=== PATIENT | male | born 1970 | race Caucasian/White ===

== ENCOUNTER 2023-12-26 07:38 | Outpatient (RCR) | payer MEDICAID, SELFPAY ==
--- NOTE | 2023-12-26 11:30 | HP.OTFCE_ITS ---
Task Lift Floor (Occasional 1-33% of Day): 0 Floor (Frequent 34-66% of Day): n/a Floor (Constant 67-100% of Day): n/a Floor PDL: No Ability Knee (Occasional 1-33% of Day): 30 Knee (Frequent 34-66% of Day): 15 Knee (Constant 67-100% of Day): 6.31 Knee PDL: Light Waist (Occasional 1-33% of Day): 0 Waist (Frequent 34-66% of Day): n/a Waist (Constant 67-100% of Day): n/a Waist PDL: No Ability Shoulder (Occasional 1-33% of Day): 25 Shoulder (Frequent 34-66% of Day): 12.5 Shoulder (Constant 67-100% of Day): 5.26 Shoulder PDL: Light Overhead (Occasional 1-33% of Day): 0 Overhead (Frequent 34-66% of Day): n/a Overhead (Constant 67-100% of Day): n/a Overhead PDL: No Ability Comments: pt is unable to perform floor lift, waist lift, or overhead lift due to instability of R knee and LOB. Pt performs knee as well as shoulder lift at light lifting physical demand level. pt HR does rise with shoulder and attempted over head lifts with pain remaining consistent at 5/10 R knee. Work Activity/Posture Bending: Occasional Ability (1-33% of day) Squatting: No Ablility (0% of day) Kneeling: No Ablility (0% of day) Reaching out: Frequent Ability (34-66% of day) Reaching up: Frequent Ability (34-66% of day) Sitting: Occasional Ability (1-33% of day) Walking: Occasional Ability (1-33% of day) Standing: Occasional Ability (1-33% of day) Reference Reference: Duration Sedentary Sedentary Light Light Light Medium Medium Medium Heavy Very Heavy Heavy Occasional (0-33% of day) Frequent (34-66% of day) Constant (67-100% of day) 10 # Negligible Negligible 15 # 8 # Negligible 20 # 10# Negli. 35 # 18 # 7 # 50 # 25 # 10 # 75 # 100 # >100 # 38 # 50 # >50 # 15 # 20 # >20 # Patient Information Height: 6 ft 7 in Weight:: 174.179 kg Hand Dominance: Right Medical History Medical History Including Restrictions: This 53 year old male presents for FCE this date for determination of disability. Pt reports beginning of issues in July of 2023 with sciatic pain pt seen by doctor and doctors dx pt with radiculopathy narrowing of spine. dx progressed to impacting pts R knee. pt has been seening therapy for back since september 2023 and pt reports back is now feeling better however has gone down to his R knee. pt reports a weakness of R knee along with pain with constant need to move position of knee as well as occ buckling of knee. pt main limiting factors are pain in back as well as weakness of R knee impacting mobility. pt does report falling x6 since the start of the year due to leg giving out on him. Diagnoses Diagnoses: Radiculopathy M54.16 spine narrowing sciatica hx of R elbow sx no other hx provided by pt Symptoms Symptoms: limited movement in hip as well as back knee pain as well as weakness instability R knee mary Pain Pain: knee pain 5/10 rating -- tolerable as long as i go slow pt states he takes alleve at night for pain however that is it Aime pain score 4/78 Work History Work History: pt was working for [employer] however voluntary lay off due to having to use walker at this time - high demand heavy lifting and twist 4 years. 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 ADLS ADLS: Pt lives with brother in apartment with entry stairs approx 27 stairs to get into apartment with unilateral hand rail. single story apartment. pt has a t/s combo however does sponge bath does not get into tub which pt does because he cant lift leg to get into tub. no grab bars standard commode. Pt is I in grooming self feeding tasks pt receives assistance with bathing and dressing task to bath LEs. Pt unable to perform heavy cleaning task. light cooking tasks. Brother helps with donning R sock and shoe. pt does not drive. Pt cousin assists with this. pt is able to shop if supports self with cart and has walker with him. pt has been using standard walker for mobility since september. pt has had x6 falls this year due to R knee giving out one in stair well leading to apartment. pt reports only leaving apartment x2 a week due to having to navigate steps. Physical Examination Physical Examination: arrives this date using standard walker for mobility forward rounded posture in standing. with sitting kicks R knee out into ext ension sits sideways in chair moves position often. in standing pt locks R knee out into hyperextension or leans on walker for support on forearms. HR at baseline 74 bpm ROM: BUEs WFL BLE hip flexion wfl R LE knee extension 155 degrees R knee flexion 90 degrees L knee extension and flexion WFL Strength: Fet Peak Force Strength: R UE shoulder flexion 30 pounds LUE shoulder flexion 27 pounds R bicep flexion 45 pounds L bicep flexion 38 pounds R tricep extension 29 pounds L tricep extension 24 pounds RLE hip flexion 13 pounds LLE hip flexion 13 pounds R knee extension 16 pounds L knee extension 20 pounds R knee flexion 21 pounds L knee flexion 19 pounds Right Loft Patternmaker Strength Average: 76.66 Right Loft Patternmaker Strength Percentile: 4th percentile Left Loft Patternmaker Strength Average: 88.33 Left Loft Patternmaker Strength Percentile: 10.6 percentile Right Lateral Pinch Average: 8.00 Right Lateral Pinch Percentile: < 10th percentile Left Lateral Pinch Average: 10.66 Left Lateral Pinch Percentile: < 10th percentile Right Tripod Pinch Average: 5.00 Right Tripod Pinch Percentile: <10th percentile Left Tripod Pinch Average: 5.00 Left Tripod Pinch Percentile: <10th percentile Comments: Pt presents with decreased strength of B hip flexors decreased strength R knee flex as well as extension pt did have sx on R elbow in 2012 for fx which may be reason for 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 Sensation: denies of BUEs R LE tingling every once in awhile Fine Motor: denies any impairments with FMC Balance: standing forward reach score 8 this indicates pt is at moderate risk for falls Non Material Handling Activities Bendin/3x HR 77 bpm pain 3/10 then 10/10 at own pace 5/10 pain R knee HR 80 bpm, rapidly 1/10x knee mary pt needs to sit support of desk wide stance R knee locked into hyperextension switches arm reaching for item throughout slow pace unsteady Squattin/3x unable able to do slight squat with BUE support on desk HR 74 pain R knee 5/10 Kneelin/3x unable possibility of R knee giving out pt has not kneeeled since beginning of symptoms in july Reaching out/up: reaching out 3/3 then at own pace 10/10 then rapidly 10/10 HR 85 bpm pain in R knee 5/10 reaching up 3/3 then at own pace 10/10 then rapidly 10/10 HR 95 bpm knee pain 5/10 Walking: able to walk from entrance to OT [place] able to walk to therapy room 228 feet-- sits for info gathering able to walk back when leaving for total of [phone] (456 feet) Standing: stand for approx 15-17 min with R knee locked in hyperextension with occ need to lean on walker on forearms. forward rounded posture during stand. Sitting: approx 30- 45 min before needing to stand to adjust position of knee. pt fidgets and re positions R knee often in sitting Climbing Stairs: pt is able to make it up x4 steps before R knee mary and pt catches self using hand rail. pt uses step to pattern ascending steps with R knee extended entire time. pt descends using step to pattern pain in R knee 8/10 Dynamic Occasional Lifting Capacity Floor Lift: unable to lift box unable to lift from floor level due to increased instability Knee Lift: 15 + box (15 pounds) knee lift with no bend at knee bending from waist to complete 80 bpm pain 5/10 R knee Waist Lift: unable due to need for support of walker to take side step pt is able to lift box at waist level however unable to lift and complete translation of box due to need for external support Shoulder Lift: 10 pounds plus box (15 pounds) HR 98 bpm pain 5/10 R knee stand between walker just in case need for support Overhead Lift: unable pt almost approaches top however looses balance and has to set box back down Carrying: unable due to inability to let go of walker to complete a carry movement Comments: pt is able to perform knee level lift as well as shoulder level lift using compensatory movements to complete. pt is unable to complete floor , waist and overhead lifts due to instability as well as decreased mobility of knee.
== END 2023-12-26 14:59 | disposition home or self-care (01) ==
LOC: OT 07:38
PROVIDERS: PCP Nurse Practitioner Family; Referring Provider Anesthesiology Pain Medicine; Visit Provider Anesthesiology Pain Medicine
DX: M54.16 Radiculopathy, lumbar region (principal)
CPT/HCPCS: 97750

== ENCOUNTER → 2024-05-14 | Outpatient (CLI) | payer MEDICAID, SELFPAY ==
--- NOTE | 2024-05-14 08:11 | MRI_ITS ---
STUDY: MRI THORACIC SPINE WITHOUT CONTRAST REASON FOR EXAM: Male, 54 years old. pain TECHNIQUE: Standardized fat and water weighted pulse sequences were obtained in the sagittal and axial planes. COMPARISON: None. FINDINGS: Normal kyphosis of the thoracic spine. Mild levoscoliosis is present. No marrow edema or fracture or compression deformity is present. No aggressive abnormalities are present. T3-T4: Diffuse disc desiccation with mild posterior disc space narrowing and a midline to right paracentral broad-based disc protrusion causing compression of the right anterior aspect of the cord and mild central canal stenosis. Moderate right foraminal stenosis with nerve root compression. Hypertrophy of the right facet joint and ligamenta flava contribute to central canal stenosis and posterior mass effect on the right side of the cord. T5-T6: Moderate left and severe right facet joint hypertrophy and degeneration with moderate left and severe right foraminal stenosis with nerve root compression. T7-T8: Diffuse disc desiccation with mild disc space narrowing and slight annular bulging with a shallow left paracentral disc protrusion causing compression on left anterior aspect of the cord and mild central canal stenosis. Moderate facet joint and ligamenta flava hypertrophy contributing to central canal stenosis. T8-T9: Diffuse disc desiccation with mild disc space narrowing and a shallow right paracentral disc protrusion with compression of right anterior aspect of the cord. Moderate facet joint and ligamenta flava hypertrophy contribute to central canal stenosis and posterior thecal sac compression. Mild bilateral foraminal stenosis. T9-T10: Diffuse disc desiccation with mild disc space narrowing and slight posterior annular bulging with anterior mass effect on the cord. Mild central canal stenosis. Mild facet joint and ligamenta flava hypertrophy. Moderate right and severe left foraminal stenosis with nerve root compression due to facet joint hypertrophy T10-T11: Diffuse disc desiccation with mild posterior disc space narrowing but no posterior disc herniation or bulging. Severe facet and ligamenta flava hypertrophy resulting in compression on the posterior aspect of the spinal cord and severe central canal stenosis. There is also bright signal in the compressed cord consistent with compressive myelomalacia. T1-2, T2-3, T3-4, T4-5, T5-6, T11-12: Disc desiccation and mild endplate spurring/spondylosis and small Schmorl''s node is present throughout the thoracic spine. Normal central canal and intervertebral neural foramina at the corresponding levels. Normal visualized thoracic cord. Normal conus medullaris that terminates at the T12-L1 level. The soft tissue structures are unremarkable. MRI/Spine Thoracic (Routine) IMPRESSION: Multilevel degenerative changes of the thoracic spine detailed above at each level. Electronically Signed: Kayden Mckee MD at 16:01 EDT ,
== END | disposition home or self-care (01) ==
LOC: MRI 07:57
PROVIDERS: PCP Nurse Practitioner Family; Referring Provider Orthopaedic Surgery Orthopaedic Surgery of the Spine; Visit Provider Orthopaedic Surgery Orthopaedic Surgery of the Spine
DX: M47.14 Other spondylosis with myelopathy, thoracic region (principal)
CPT/HCPCS: 72146

== ENCOUNTER 2024-06-12 13:48 | Observation (INO) | payer MEDICAID, SELFPAY ==
[2024-06-07 11:44] LABS: Magnesium 2.3 mg/dL (1.6-2.6)
[2024-06-07 12:33] LABS: HIV - WCH Non-Reactive (Nonreactive); Hepatitis B Surface Antibody Non-Reactive; Hepatitis C Antibody Non-Reactive (Nonreactive)
[2024-06-08 05:07] LABS: Hepatitis A AB, Total Negative (Negative)
[2024-06-12] VITALS (14 sets, daily range): BP systolic 103–143; BP diastolic 62–83; PULSE 60–74; RESP 16–20; TEMP 35.9–36.9; O2SAT 90–100; BMI 20.2; BMI 44.1
[2024-06-12] MEDS: Lactated Ringers 1,000 ML 15 ML IV (09:31)
[2024-06-12] MEDS: Acetaminophen 500 MG Tablet 1000 MG PO (09:32)
[2024-06-12] MEDS: Magnesium 1 GM over 15 mins IV (09:32)
[2024-06-12 10:01] LABS: Bedside Glucose 96 mg/dL (74-106)
--- NOTE | 2024-06-12 10:04 | PCM.PRE.AN2 ---
ASA Classification* ASA Classification ASA Classification: 3 Assessment & Plan Anesthesia* Anesthesia Assessment Anesthesia Assessment: Discussed sedation and/or anesthesia options, risks, benefits, and alternatives with patient/parents/legal guardian/POA. Questions invited. The patient/parents/legal guardian/POA seems to understand and agrees to proceed with anesthesia plan. Reviewed the physical assessment, medical history, allergy history and patient home medications list prior to surgery/procedure/anesthetic and documented any changes. Performed airway and anesthesia risk assessments. Anesthesia Type Anesthesia Type: General History Source History Obtained from:: Patient and Chart Anesthesia Focused Assessment* Temperature: 97.8 F Pulse Rate: 60 Blood Pressure: 143/82 Respiratory Rate: 18 Pulse Ox: 98 Oxygen Delivery Method: Room Air Airway Assessment Mouth opens: >3 cm Mallampati Score: III Teeth Condition: Caps/Crowns (Patient has to His Teeth. They Are Tight) and Missing (Multiple missing teeth.) Neck Range of motion (ROM): Full ROM Focused Labs Anesthesia Preop lab: CBC WBC 3.9 K/mm3 (4.4-11.0) L 10/11/13 10:36 RBC 5.26 M/mm3 (4.6-6.2) 10/11/13 10:36 Hgb 15.2 g/dl (13.0-16.5) 10/11/13 10:36 Hct 44.8 % (40-54) 10/11/13 10:36 Plt Count 198 K/mm3 (150-450) 10/11/13 10:36 CHEMISTRY Potassium 4.5 mmol/L (3.5-5.1) 10/11/13 10:36 Sodium 139 mmol/L (136-145) 10/11/13 10:36 Magnesium 2.3 mg/dL (1.6-2.6) 06/07/24 10:52 BUN 20 mg/dL (7-18) H 10/11/13 10:36 Creatinine 1.0 mg/dL (0.8-1.3) 10/11/13 10:36 Glucose 92 mg/dL (70-110) 10/11/13 10:36 POC Glucose 96 mg/dL (74-106) 06/12/24 09:23 COAG Pre-Assessment Diagnosis/Proposed Procedure Planned Operative Procedure(s): LAMINECTOMY T10-11 Anesthesia History 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 When Was Last Pacemaker Check QUESTION #4 FULL TEXT: You/Your Family Experience fever (hyperthermia) with Anesthesia Last Oral Intake Last Oral intake: Last Oral Intake NPO since 08:00 06/12/24 09:26 Meds taken in AM with sips of Yes 06/12/24 09:26 water? Meds patient instructed to take am of surgery levothyroxine Any additional information?: Yes Meds taken in AM with sips of water?: Yes PONV PONV - sales applications engineer: PONV - sales applications engineer Female No 06/06/24 14:09 HX of Motion Sickness No 06/06/24 14:09 HX of N/V After Surgery No 06/06/24 14:09 Non-Smoker Yes 06/06/24 14:09 Duration of Surgery greater Yes 06/06/24 14:09 than 60 minutes Number of Risk Factors 2 06/06/24 14:09 PONV Score Moderate Risk 06/06/24 14:09 Height & Weight Height & Weight: Anesthesia: Height & Weight Height 6 ft 6 in 06/12/24 09:26 Weight: 79.379 kg 06/12/24 09:26 Body Mass Index (BMI) 20.2 06/12/24 09:26 Respiratory Assessment Respiratory Assessment - sales applications engineer: Respiratory Tract Infection Hx - sales applications engineer Hx Respiratory Tract Infection No 06/06/24 14:09 STOP Sleep Apnea STOP Sleep Apnea - sales applications engineer: STOP Sleep Apnea - sales applications engineer Hx Hypertension Yes: CONTROLLED WITH MEDS 06/06/24 14:09 Hx Sleep Apnea Yes 06/06/24 14:09 CPAP Yes: NONCOMPLIANT/CURRENTLY 06/06/24 14:09 HAS NO MACHINE BIPAP No 06/06/24 14:09 Do you snore loudly (louder than talking or can be heard Do you often feel tired/ fatigued/ sleepy during daytime? Has anyone observed you stop breathing during sleep? STOP Results Positive 06/06/24 14:09 QUESTION #5 FULL TEXT : Do you snore loudly (louder than talking or can be heard through closed doors)? 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 Specify any problems Hx of Preganancy in last 3 N/A 06/06/24 14:09 Months Nurse Filling Out Transfusion DSCHRIBER 06/06/24 14:09 & Questions: Date: 06/06/24 06/06/24 14:09 Time: 14:12 06/06/24 14:09 Patient unable to answer at this time (ie. confused, unrespo /Reproduction History /Reproductive History - sales applications engineer: /Reproductive Hx- sales applications engineer Hx Now No 06/06/24 14:09 Gestational Age (in weeks): EDC: Hx Hx Para Hx Section SAB No 06/06/24 14:09 Active Medications Active Medications: Current Medications Generic Name Dose Route Start Last Admin Trade Name Freq PRN Reason Stop Dose Admin Acetaminophen 1,000 mg 06/12/24 11:30 06/12/24 09:32 Acetaminophen 500 Mg Tablet PO 06/12/24 11:31 1,000 mg X1 ONE Administration Cefazolin Sodium 3 gm/ N/A 30 mls @ 600 mls/hr 06/12/24 11:30 IV 06/12/24 11:32 PREOP ONE Magnesium Sulfate 1 gm/ 102 mls @ 408 mls/hr 06/12/24 11:30 06/12/24 09:32 Dextrose IV 06/12/24 11:44 408 mls/hr X1 ONE Administration Lactated Ringer's 1,000 mls @ 15 mls/hr 06/12/24 09:15 06/12/24 09:31 IV 06/17/24 22:34 15 mls/hr .Q48H AMBROSE Administration Protocol Insulin Human Lispro 1 - 6 unit 06/12/24 11:30 Insulin Lispro 100 Unit/Ml Insuln.Pen SC Q4H PRN PRN BG>/= 180, SEE PROTOCOL Protocol [facility] Medical History Wears glasses History of steroid therapy Thyroid disease Walker as ambulation aid Arthritis Injury of head and neck Gastric reflux CPAP (continuous positive airway pressure) dependence Non-smoker Back pain History of pain when walking Hypertension Home Medications ?Medication ?Instructions ?Recorded ?Last Taken ?Type levothyroxine 100 mcg tablet 100 mcg PO QDAY 01/05/24 06/12/24 History famotidine 20 mg tablet 20 mg PO BID 04/26/24 06/11/24 History hydroxychloroquine 200 mg tablet 200 mg PO QDAY 04/26/24 06/11/24 History lisinopril 30 mg tablet 30 mg PO QDAY 04/26/24 06/11/24 History amlodipine 5 mg tablet 5 mg PO DAILY 06/06/24 06/11/24 History ergocalciferol (vitamin D2) 1,250 1,250 mcg PO ANDERSON 06/06/24 06/11/24 History mcg (50,000 unit) capsule naproxen sodium 220 mg capsule 440 mg PO BID PRN pain 06/06/24 Unknown History (Aleve) Allergy/AdvReac Type Severity Reaction Status Date / Time sulfamethoxazole (From Allergy Rash Verified 06/12/24 09:08 Bactrim) trimethoprim (From Bactrim) Allergy Rash Verified 06/12/24 09:08 Surgical History History of hernia surgery Hx of elbow surgery Hx of appendectomy Hx of tonsillectomy Social History Smoking Status: Never smoker alcohol intake: never Review of Systems (Anesthesia) ROS Narrative System reviewed and no additional complaints, except as documented.
--- NOTE | 2024-06-12 10:56 | PCM.HP.BLA ---
History and Physical Date of Admission: 06/12/24 MR#: [id number] Acct: [id number] Name: EDITA CORREA Rep #: [id number] : 1970 Provider: Dr. Ishmael Schilling MD Age/Sex: 54/M [place] [facility] [place] Status: Signed Intake Vital Signs 01/04/2409:02 Height 6 ft 7 in Intake Visit Reasons: THORACIC SPINE Accompanied by: Self Is patient in pain?: Yes Allergies sulfamethoxazole (From Bactrim) Allergy (Verified 05/28/24 07:34) Rashtrimethoprim (From Bactrim) Allergy (Verified 05/28/24 07:34) Rash Medications ?Medication ?Instructions ?Recorded ?Confirmed ?Type levothyroxine 100 mcg tablet 100 mcg PO QDAY 01/05/24 05/28/24 History famotidine 20 mg tablet 20 mg PO BID 04/26/24 05/28/24 History hydroxychloroquine 200 mg tablet 200 mg PO QDAY 04/26/24 05/28/24 History lisinopril 30 mg tablet 30 mg PO QDAY 04/26/24 05/28/24 History PFSH Surgical History History of hernia surgery Hx of elbow surgery Hx of appendectomy Hx of tonsillectomy Social History Smoking Status: Never smoker alcohol intake: never HPI THORACIC SPINE Details: This documentation accurately reflects the service provided and the decisions made by me, Dr. Ishmael Schilling MD 05/28/24 0730. Part of today?s visit was documented by [ ], acting as scribe. EDITA CORREA is a 54 year old M here today for a followup after his thoracic MRI. Patient notes that he continues to have pain and stiffness and soreness. He is using a walker to ambulate. He has used a walker to ambulate since August. Patient denies any changes in his symptoms. He is taking Aleve for pain. His MRI is here for review. No new falls. Says that his falls are most likely related to leg weakness. HPI from 04/05/24: EDITA CORREA is a 53 year old M here today for low back pain. Pt. presents ambulating slowly with use of walker. He has had one right knee steroid injection from Dr. Nicole on 01-24-24 and has completed PT which he states was somewhat helpful. He has also been seen by Dr. Londono and is waiting for approval for steroid injection for his back pain. He rates his low back pain 12/28. He states the pain in his low back extends into his right hip. He denies new injury, numbness or tingling. He uses a walker for balance and if he doesn't use a walker, says that he falls. HPI from 01/05/24: EDITA CORREA is a 53 year old M here today NEW patient for low back pain that started in August of this year. Patient does ambulate with a walker. He has had xrays and MRI at [facility] but he didn't bring the images with him today. He has pain that radiates down the right leg but mostly in the knee. He has occasional numbness and tingling in the right leg if he stands or sits for too long. He states that Dr. Amaya was going to do surgery on him but due to his insurance changing he was no longer able to do it. He did PT and started the fist Monday and ended on the of this month, he was going 2 days a week. He states it did help some with the back but made his knee worse. He has seen Dr. Londono on 10/07/23 for an injection which did give him some relief. He was also given gabapentin which did help some but never got a refill. He now takes Aleve for pain at night but it doesn't seem to give him much relief. Edita started having low back pain radiating down the right lower extremity around July or August. He does not remember any specific episode or injury. 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 He has not been able to go back to work since September. He was seen by Dr. Amaya who did obtain an MRI but this not available for us to see. He has tried physical therapy as well as an epidural injection in September. He is scheduled to return for follow-up to Dr. Londono. Today, he says that he does not have significant axial back pain. Most of his pain is in the right knee. Over the last few months he has noticed the need for a walker as he is not able to put weight on the right leg. He denies any swelling in the knee but mentions that he is not able to bend the knee back. He states that the knee and 30 degree flexion and prefers not to bend it further. He has undergone occupational therapy assessment for possible disability application. He has undergone hip and knee x-rays and also institution which also did not bring it with him. Ortho Exam General General: Yes no acute distress Neurologic: Yes alert and Yes oriented x3 Spine DTR's: Rt Patellar: 3+ and Lt Patellar: 3+ SPINE TESTING CERVICAL THORACIC LUMBAR Musculoskeletal Strength 0=absent - 5=normal Details: Exam of the lower back shows no tenderness. Neurologic range of motion shows 5x5 power. Normal sensations across all dermatomes. Patient has severe antalgic gait. He was able to make it up on the exam table with pain. Romberg's and gait and balance could not be tested because severe reliance on the walker. Knee and ankle reflexes are exaggerated. Coding Level of Care Code Off vis,est,level 4 Diagnoses Thoracic myelopathy M47.14 Spinal stenosis of lumbar region with neurogenic claudication M48.062 Time Spent (min) 35 Assessment and Plan Assessment and Plan (1) Thoracic myelopathy: Status: Acute (2) Spinal stenosis of lumbar region with neurogenic claudication: Status: Acute Orders: Orders Thoracic Spine 2 Views Today M54.9 - Dorsalgia, unspecified Plan Obtained and reviewed imaging today with the patient and reviewed MRI from 05/14/24. MRI shows T10-T11 severe facet and ligamenta flava hypertrophy resulting in compression on the posterior aspect of the spinal cord and severe central canal stenosis with myelomalacia. T9-T10 shows moderate right and severe left foraminal stenosis with nerve root compression. T8-9 also shows mild central stenosis with cord indentation. Discussed imaging findings in detail. Explained to him that he has developed severe cord compression especially at T10-11 with myelomalacia indicative of a reversible spinal cord damage. Natural history of thoracic myelopathy was discussed. Patient has had progressive loss of balance and worsening of function in the lower extremities. Patient is a candidate for T10-T11 laminectomy. Possible need for fusion was discussed. Explained to him that the T8-9 level also shows mild cord indentation but may not be severe enough to consider surgical decompression. I recommend restricting the surgery to T10-11 laminectomy. Discussed the surgery in detail with the patient and reviewed risk and benefits. Patient understands and wishes to proceed with surgery. He will follow up with his PCP for surgical clearance. Encouraged him to continue to use the walker prior to surgery to prevent falls. He will follow up for a preop appointment after our office schedules him. Patient is in agreement.
[2024-06-12] MEDS: Cefazolin 3 GM in Syringe 1 EACH IV (11:11)
[2024-06-12] MEDS: TXA 1000mg in NS100 100ml (IVPB at Incision) 660 MG IV (11:23)
--- NOTE | 2024-06-12 11:41 | RAD_ITS ---
EXAM: FL FLUOROSCOPY < 1 HOUR CLINICAL INDICATION: LAMINECTOMY T10-11 TECHNIQUE: Fluoroscopic images performed in multiple projections. Fluoroscopic guidance was provided by a physician. 9.3 seconds fluoroscopic time. 10.01 mGy total dose. COMPARISON: Thoracic spine radiographs, 05/28/2024 FINDINGS AND RAD/Thoracic Spine 2 Views IMPRESSION: Intraoperative fluoroscopic examination. For complete details, refer to the operative note. Electronically Signed: Damián Brito DO at 23:57 EDT ,
[2024-06-12] MEDS: TXA 1000mg in NS100 100ml (IVPB at Closure) 660 MG IV (13:06)
[2024-06-12] MEDS: Ropivacaine 0.5% 30 ML Vial (13:13)
--- NOTE | 2024-06-12 13:55 | PCM.POST.ANE ---
Anesthesia: Postop Eval I Current Vital Signs Temperature: 97.1 F Pulse Rate: 74 Blood Pressure: 117/70 Respiratory Rate: 16 Pulse Ox: 93 Oxygen Delivery Method: Room Air Assessment Airway patent: Yes Spontaneous unlabored respirations: Yes Mental status: Awake (EASILY AROUSABLE) and Calm nausea: No Vomiting: No Anesthesia Complication: No Fluid Hydration Crystalloid volume administer (ml): 1,400 Total IV fluid infused: 1,400 Progress Note Anesthesia document: Postop Eval 1 completed: Yes
--- NOTE | 2024-06-12 13:56 | PCM.OPRPT ---
Operative Report (Standard) Operative Information Surgery/Procedure Performed: Thoracic laminectomy T10-11 Surgeon: Ishmael Schilling Date of Procedure: 06/12/24 Procedure Start Time: 11:50 Procedure Stop Time: 13:40 Pre-Operative Diagnosis: T10-11 stenosis, cord compression, myelopathy Post-Operative Diagnosis: Same Select all DRAINS/GRAFTS/IMPLANTS that apply: None Type of Anesthesia: General Estimated Blood Loss: 100 cc Specimen collected: No Description of surgery: Preoperative diagnosis: T10-11 stenosis, cord compression, cord signal changes, myelopathy Postoperative diagnosis: Same Name of procedure: T10-11 open laminectomy CPT 32847 Attending Surgeon: Dr. Ishmael Schilling Estimated blood loss: 100 mL Anesthesia: General Indications: Patient is a 54-year-old Gentleman who presented with Worsening difficulty with balance and weakness in right first and lower left lower extremities. MRI revealed T10-11 stenosis with cord compression with cord signal changes or myelomalacia. All options of treatment were discussed which included continued nonoperative treatment measures. Due to the weakness and progressive symptoms, in order to halt the progression of myelopathy, patient requested surgical intervention for laminectomy. All risks and benefits associated with the procedure were explained to the patient. The risks include but are not limited to infection, bleeding, hematoma formation, injury to nerves and vessels, spinal cord injury persistent paresthesia, incidental dural tear, spinal instability and need for fusion or other procedures in future, persistent pain, persistent weakness and numbness, paraplegia, DVT, pulm embolism, cardiopulmonary event etc. Procedure: The patient was identified in the preoperative holding suite using Unique patient identifiers. Skin was marked, consent was reviewed, and all questions were answered. The patient was then brought back to the operative room. A surgical timeout was performed to make sure correct procedure was being done on the correct patient and all operative room staff were on the same page. General endotracheal anesthesia was then given to the patient. The patient was then turned prone onto a Hoang table. The back was prepped and draped in usual fashion. Preoperative antibiotic was given. A final timeout was then again done just before starting the procedure. C-arm AP view was utilized to martha out the incision on the skin with a skin marker. An incision was then carried out approximately 2 inch length in the midline. Bovie was utilized to dissect through the subcutaneous tissue up to the fascia. The fascia was bovied at the spinous process. Subperiosteal dissection was carried out along the both side of the spinous process and the lamina. This dissection was stopped at the transverse process. Lateral edge of the pars was also identified. A Aleksandr clamp was placed on the right transverse process of presumed T11 vertebra and another Aleksandr was placed on the spinous process of T10. This was confirmed on AP and lateral views utilizing the lowermost ribs as T12. A Núñez retractor of appropriate depth was then placed to provide retraction throughout the remainder of the surgery. A bone cutter was used to remove the T10 spinous process. Rongeur was used to remove the remainder of the spinous process. Bone wax utilized to control bony bleeding. [employer] bone scalpel was then utilized to first create a score along the area of the laminectomy. Care was taken to preserve at least 1 cm of bone from the lateral border of the pars. The bone scalpel was then advanced to perform the cuts along this score. The lamina was then removed carefully. The flavum was utilized to protect the dura and superior articular process was carefully from the flavum. Partial medial facetectomy was performed to provide adequate decompression of the central portion of the canal. Superior portion of T11 lamina was also removed with help of Kerrisons. All of the flavum was eventually removed. A large portion of the lateral portion of the flavum was ossified. Kerrison rongeurs were utilized to perform adequate decompression of the spinal cord. Once decompression was adequately assessed with Smith, irrigation was done with normal saline. Irrisept was kept in the wound for 1 minute and then rinsed with saline. A small piece of Gelfoam was then placed over the bony window. The Núñez retractor was then removed. And closure was done in layers. The deep fascial layer was closed in a watertight fashion with interrupted 1 Vicryl augmented with #2 strata fix. Subcutaneous tissue was closed with 0 Vicryl for deep subcutaneous fat and 2-0 Vicryl for subcutaneous layer. Milton were used on the skin. gauze was then placed over the wound covered with Tegaderm. The patient was then turned supine onto a hospital bed. The patient was extubated and taken to PACU in stable condition. The patient tolerated the procedure well and no complications occurred. Estimated blood loss for the entire surgery was 100 mL. No instrumentation was utilized in this case. No dural tear occurred in this case. I was present for the entirety of the case and performed the surgery myself. Surgical Findings: See op note. Ossified ligamentum flavum noticed. 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
--- NOTE | 2024-06-12 16:56 | POSTOPAN2_ITS ---
Anesthesia Postop Eval I Sum Postop Eval Completion status Anesthesia document: Postop Eval 1 completed: Yes Anesthesia Postop Eval I Summary Anesthesia Postop Eval I Summary: Anesthesia Postop Eval I: Assessment Summary Airway patent Yes 06/12/24 13:56 LEASE ADMINISTRATION [email or web address] Spontaneous unlabored Yes 06/12/24 13:56 LEASE ADMINISTRATION ANALYST.SCHR respirations Mental status Awake - EASILY 06/12/24 13:56 LEASE ADMINISTRATION ANALYST.SCHR AROUSABLE,Calm nausea No 06/12/24 13:56 LEASE ADMINISTRATION ANALYST.SCHR Vomiting No 06/12/24 13:56 LEASE ADMINISTRATION ANALYST.SCHR Anesthesia Postop Eval I: Fluid Summary Crystalloid volume administer 1,400 06/12/24 13:56 LEASE ADMINISTRATION ANALYST.SCHR (ml) Colloids volume administered ( ml) Blood Product volume administered (ml) Total IV fluid infused 1,400 06/12/24 13:56 LEASE ADMINISTRATION ANALYST.SCHR Anesthesia Postop Eval I: Summary Notes Anesthesia Complication No 06/12/24 13:56 LEASE ADMINISTRATION ANALYST.SCHR Anesthesia Complication Comment: Post-operative progress note Anesthesia: Postop Eval II Evaluation Mental status: Awake and Calm Pain Level: 1 nausea: No Vomiting: No Complications Anesthesia Complication: No
--- NOTE | 2024-06-12 16:56 | PCM.POSTANE2 ---
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 DYEING MACHINE LOADER.SCHR Spontaneous unlabored Yes 06/12/24 13:56 TOP DYEING MACHINE LOADER.SCHR respirations Mental status Awake - EASILY 06/12/24 13:56 TOP DYEING MACHINE LOADER.SCHR AROUSABLE,Calm nausea No 06/12/24 13:56 TOP DYEING MACHINE LOADER.SCHR Vomiting No 06/12/24 13:56 TOP DYEING MACHINE LOADER.SCHR Anesthesia Postop Eval I: Fluid Summary Crystalloid volume administer 1,400 06/12/24 13:56 TOP DYEING MACHINE LOADER.SCHR (ml) Colloids volume administered ( ml) Blood Product volume administered (ml) Total IV fluid infused 1,400 06/12/24 13:56 TOP DYEING MACHINE LOADER.SCHR Anesthesia Postop Eval I: Summary Notes Anesthesia Complication No 06/12/24 13:56 TOP DYEING MACHINE LOADER.SCHR Anesthesia Complication Comment: Post-operative progress note Anesthesia: Postop Eval II Evaluation Mental status: Awake and Calm Pain Level: 1 nausea: No Vomiting: No Complications Anesthesia Complication: No
[2024-06-12] MEDS: Methocarbamol 500 MG Tablet 1000 MG PO ×2 (17:24→20:23)
[2024-06-12] MEDS: Ketorolac 15 MG/ML Vial IV (17:24)
[2024-06-12] MEDS: Ensure Surgery 237 ML LIQUID PO (17:25)
--- NOTE | 2024-06-12 18:03 | PCM.PN.HOSP ---
Reason for Visit Reason for Visit: Diagnoses Encounter for other preprocedural examination (06/12/24) Subjective Subjective 54 y/o male hx morbid obesity, hypothyroidism, HTN, GERD, hip pain presented to [facility] 06/12 for a Thoracic laminectomy T10-11 w/ Dr. Schilling. Hospitalist consulted for post op medical management. Patient evaluated bedside. Has been up to the bathroom and reports overall he is doing well, ROS reviewed and negative, no new or acute complaints Objective Data Objective Data Vital Signs: Vital Signs Temp Pulse Resp BP Pulse Ox O2 Del Method O2 Flow Rate 98.4 F 66 18 126/83 H 100 Nasal Cannula 2 06/12/24 16:16 06/12/24 16:16 06/12/24 16:16 06/12/24 16:16 06/12/24 16:16 06/12/24 16:16 06/12/24 16:16 Oxygen Flow Rate (L/min) 2 Oxygen Delivery Method Nasal Cannula Weight: 173.255 kg Body Mass Index (BMI) 44.1 Intake & Output: Intake and Output for Last 24 Hours 06/10/24 06/11/24 06/12/24 23:59 23:59 23:59 Intake Total 1352 / 1352 Balance 1352 / 1352 Lab / Micro Data Labs: Laboratory Results - last 24 hr 06/12/24 09:23: POC Glucose 96 Micro: Microbiology 06/07/24 10:52 Swab (Method) Nasal Screen MRSA/MSSA - Final Physical Exam Narrative General: Alert, oriented, no apparent distress HEENT: Atraumatic, normocephalic Eyes: Anicteric, normal conjunctiva, extraocular movements grossly intact Neck: Supple Respiratory: Clear to auscultation bilaterally, normal respiratory effort Cardiovascular: Regular rate and rhythm GI: Soft, nontender, nondistended Extremities: No edema Musculoskeletal: Moving all extremities Neuro: No overt focal neurological deficits Skin: No rashes appreciated, incision not evaluated Psych: Cooperative Assessment & Plan Assessment/Plan (1) Back pain: PLAN: Plan #HTN -Pt on amlodipine and lisinopril, these are set to resume tomorrow #Hypothyroidism -Continue Synthroid #Morbid obesity -BMI documented as 44.1 kg/m? at time of admission -Complicates treatment, prognosis, outcomes -Recommend weight loss and lifestyle changes #Hx lupus -Continue hydroxychloroquine #GERD - continue famotidine #Thoracic T10-11 laminectomy -Post op 06/12 w/ Dr. Schilling -Management per primary #DVT ppx: at discretion of primary service Tamar Rousseau MD Time spent in the patient's overall evaluation,decision-making process, review of diagnostic data, adjustment of management, discussion with other providers, nursing nursing and ancillary staff involved in patient's care documentation, 25 Minutes Charges/Coding Visit Charges Office Visits / Consults: 17671 OV L3 Est 20min
[2024-06-12] MEDS: Cefazolin 2 GM in Syringe IV (19:32)
[2024-06-12] MEDS: Senna/Docusate Sodium 1 Tablet 2 TABLET PO (20:23)
[2024-06-12] MEDS: Famotidine 20 MG Tablet PO (20:24)
[2024-06-13 00:16] VITALS: BP 149/79; PULSE 67; RESP 18; TEMP 36.8; O2SAT 96
[2024-06-13] MEDS: Ketorolac 15 MG/ML Vial IV ×2 (00:26→05:28)
[2024-06-13] MEDS: Cefazolin 2 GM in Syringe IV (03:29)
[2024-06-13] MEDS: 0.9% Saline Lock 10 ML Syringe IV ×2 (03:29→20:26)
[2024-06-13 03:30] VITALS: BP 137/79; PULSE 66; RESP 16; TEMP 36.7; O2SAT 97
[2024-06-13] MEDS: Levothyroxine 100 MCG Tablet PO (05:28)
[2024-06-13 07:04] LABS: Hematocrit 38.9 % (40-54); Hemoglobin 12.9 g/dL (13.0-16.5); Mean Corp Hgb Conc 33.2 g/dL (32-36); Mean Corpuscular Hgb 29.4 pg (27.0-32.0); Mean Corpuscular Volume 88.6 fL (80-94); Mean Platelet Vol. 9.6 fl (6.2-12.0); Platelet Count 222 K/mm3 (150-450); RBC Distribution Width CV 11.9 % (11.6-14.6); RBC Distribution Width SD 38.4 fl (35.1-43.9); Red Blood Count 4.39 M/mm3 (4.6-6.2); White Blood Count 11.3 K/mm3 (4.4-11.0)
[2024-06-13 08:22] LABS: Anion Gap 5 (5-15); BUN 28 mg/dL (7-18); BUN/Creat Ratio 23.7 RATIO (10-20); Calcium,Total 8.8 mg/dL (8.5-10.1); Chloride 109 mmol/L (98-107); Creatinine, Serum 1.18 mg/dL (0.70-1.30); EST Glomerular Filtration Rate 69 mL/min (>60); Est Glom Filt Rate - Afr Amer 83 mL/min (>60); Estimated Creatinine Clearance 128.58 ml/min; Glucose 122 mg/dL (74-106); Potassium 4.1 mmol/L (3.5-5.1); Sodium Level 139 mmol/L (136-145)
[2024-06-13 08:45] VITALS: BP 122/77; PULSE 62; RESP 18; TEMP 36.1; O2SAT 100
[2024-06-13] MEDS: Methocarbamol 500 MG Tablet 1000 MG PO ×4 (08:46→20:25)
[2024-06-13] MEDS: Famotidine 20 MG Tablet PO ×2 (08:46→20:25)
[2024-06-13] MEDS: Meloxicam 15 MG Tablet PO (08:46)
[2024-06-13] MEDS: Hydroxychloroquine 200 MG Tablet PO (08:47)
[2024-06-13] MEDS: Lisinopril 10 MG Tablet 30 MG PO (08:47)
[2024-06-13] MEDS: Senna/Docusate Sodium 1 Tablet 2 TABLET PO ×2 (08:47→20:25)
[2024-06-13] MEDS: amLODIPine 5 MG Tablet PO (08:47)
[2024-06-13] MEDS: Ensure Surgery 237 ML LIQUID PO (08:50)
--- NOTE | 2024-06-13 09:28 | CASEMGMT ---
JASWANT LION Assessment: Face to Face with pt for initial transition planning/care coordination assessment. JASWANT LION introduced self and role at [facility], pt voices understanding and consents to assessment. Pt is A&O x4 and answers all questions appropriately at this time. Pt sitting up in chair in no distress. Care providers, pharmacy, and demographics verified/updated. Admitting Dx: laminectomy T10-11 Strata Score: 1 PCP:Vane Artis NP Specialists:Yanet Schilling, mk Amado Pharmacy: [facility] Insurance: Swivl Prescription Benefit: yes LNOK: Kavitha Lawson, cousin Living Arrangements: Pt lives with brother and nephews in a second story apt with 22 steps to enter with a rail. Pt reports prior to surgery he was I in ADLs. Pt brother does laundry. Pt reports his brother and nephews are gone all day so it is like he lives alone. Transportation: Pt does not drive, pt cousin transports him to medical appts. DME:walker HHC/SNF: Denies hx of Pt states he has worked with therapy this morning but it is currently not documented. Pt states he would like to go to a SNF so he does not have to maneuver the steps at his home. Pt states he has applied for an apt in [place] for disable people so he does not have to do steps. He is awaiting acceptance for this. Pt aware that once therapy notes are in, JASWANT LION or CHIP will speak with him. Pt states no further concerns/needs. CM to follow. Advised pt to ask CM if any further question/concerns/needs arise, voices understanding. Pt Goal: SNF Plan: TBD pending therapy evals Handoff given to MS3 JASWANT LION and CHIP. Roseann MICHAUD CM
--- NOTE | 2024-06-13 11:20 | CASEMGMT ---
Addendum entered by Trduy Barr 06/13/24 12:00: [facility] d/t not being in network. SW updated. Trudy Barr DC Planning Asst. Original Note: Discharge Planning Referral sent via [facility] to [facility]. Trudy Barr DC Planning Asst.
--- NOTE | 2024-06-13 11:39 | CASEMGMT ---
Addendum entered by Selina Contreras 06/13/24 12:49: [facility] was unable to accept pt referral. Pt advised. A list of SNF providers including quality and resource use data and consistent with the patient?s preferred geographic region, medical needs, and insurance network were provided from the [facility] Guide. Pt chose [facility], [facility], and [facility]. MIGUEL ANGEL notified. KRISH Milton Addendum entered by Selina Contreras 06/13/24 11:51: Pt declines SNF list at this time d/t knowing FOC. A list will be provided if needed for additional options. KRISH Milton Original Note: Social Work- SW met with pt to complete SDOH. Pt reports that he has concerns about the 22 stairs leading into his apartment. Pt has a first floor/accessible apartment available to him mid- June, but needs placement until that is available. Pt would like a referral to [facility]. PT reports that pt walked 60' and has concerns that he has had difficulties navigating stairs prior to surgery; getting arm stuck, falling. Pt surgeon reports that he is aware pt is requesting SNF. DCA advised of pt FOC and referral request. SW remains available to follow. KRISH Milton
--- NOTE | 2024-06-13 12:10 | CASEMGMT ---
Discharge Planning A list of?SNF providers including quality and resource use data and consistent with the patient's preferred geographic region, medical needs, and insurance network was created in [facility] Guide.? This list was provided to the SW. Trudy Barr Discharge Planning Asst.
--- NOTE | 2024-06-13 12:13 | PCM.PN.ORT ---
Subjective Subjective Seen with Dr. Schilling. He is now POD #1 laminectomy T10-11. His pain has been well managed. He has walked with physical therapy with a walker. Says that he has not done steps with him and he lives in an apartment that requires him to walk up 22 steps. Patient is unsure if he is able to return home because of these steps. Objective Data Objective Data Vital Signs: Vital Signs Temp Pulse Resp BP Pulse Ox O2 Del Method O2 Flow Rate 97 F L 62 18 122/77 H 100 Room Air 2 06/13/24 08:45 06/13/24 08:45 06/13/24 08:45 06/13/24 08:45 06/13/24 08:45 06/13/24 08:45 06/12/24 16:16 Oxygen Flow Rate (L/min) 2 Oxygen Delivery Method Room Air Weight: 381 lb 15.379 oz Body Mass Index (BMI) 44.1 Intake & Output: Intake and Output for Last 24 Hours 06/11/24 06/12/24 06/13/24 23:59 23:59 23:59 Intake Total 1821 1088.25 / 1088.25 Balance 1821 1088.25 / 1088.25 Lab / Micro Data 06/13/24 06:38 06/13/24 06:38 Labs: Laboratory Results - last 24 hr 06/13/24 06:38: WBC 11.3 H, RBC 4.39 L, Hgb 12.9 L, Hct 38.9 L, MCV 88.6, MCH 29.4, MCHC 33.2, RDW Std Deviation 38.4, RDW Coeff of Barrett 11.9, Plt Count 222, MPV 9.6, Sodium 139, Potassium 4.1, Chloride 109 H, Carbon Dioxide 25.0, Anion Gap 5, BUN 28 H, Creatinine 1.18, Estim Creat Clear Calc 128.58, Est GFR (MDRD) Af Amer 83, Est GFR (MDRD) Non-Af 69, BUN/Creatinine Ratio 23.7 H, Glucose 122 H, Calcium 8.8 Micro: Microbiology 06/07/24 10:52 Swab (Method) Nasal Screen MRSA/MSSA - Final Radiography Diagnostic Testing: Radiology Impression Thoracic Spine X-Ray 06/12/24 11:41 IMPRESSION: Intraoperative fluoroscopic examination. For complete details, refer to the operative note. Electronically Signed: Damián Brito, at 23:57 EDT , Physical Exam Narrative Tegaderm and gauze are intact. No drainage noticed. Neurological exam of the lower extremities shows 5x5 power. Normal sensations across all dermatomes. Const alert, oriented x3 and no apparent distress Assessment & Plan Assessment/Plan (1) Status post laminectomy: PLAN: Plan POD #1 PT/OT to attempt stairs with the patient. Discussed discharge location of home vs SNF and patient understands that based on the surgery and function, a SNF may not be possible. In the past he has had multiple falls on these stairs and feels that his knee gives out on him. Pain has been well managed. Waiting to hear back from international marketing manager on where to discharge. He will follow back up in 2 weeks in the clinic.
--- NOTE | 2024-06-13 12:47 | CASEMGMT ---
Addendum entered by Trudy Barr 06/14/24 12:30: [facility] and will submit for precert. SW updated. Trudy Barr DC Planning Asst. Addendum entered by Trudy Barr 06/14/24 08:07: Msg sent to check on status of referral. Trudy Barr DC Planning Asst. Original Note: Discharge Planning Referral sent to [facility] via [facility]. Trudy Barr DC Planning Asst.
[2024-06-13 15:15] VITALS: BP 140/88; PULSE 57; RESP 18; TEMP 36.6; O2SAT 100
[2024-06-13 20:15] VITALS: BP 145/64; PULSE 62; RESP 18; TEMP 36.5; O2SAT 99
[2024-06-14 04:01] VITALS: BP 129/80; PULSE 60; RESP 16; TEMP 36.8; O2SAT 100
[2024-06-14] MEDS: Levothyroxine 100 MCG Tablet PO (05:08)
[2024-06-14 07:23] VITALS: BP 134/77; PULSE 56; RESP 16; TEMP 36.4; O2SAT 99
[2024-06-14] MEDS: Hydroxychloroquine 200 MG Tablet PO (07:35)
[2024-06-14] MEDS: Ensure Surgery 237 ML LIQUID PO ×2 (07:35→17:54)
[2024-06-14] MEDS: Senna/Docusate Sodium 1 Tablet 2 TABLET PO ×2 (10:12→21:22)
[2024-06-14] MEDS: Methocarbamol 500 MG Tablet 1000 MG PO ×4 (10:12→21:22)
[2024-06-14] MEDS: Famotidine 20 MG Tablet PO ×2 (10:12→21:23)
[2024-06-14] MEDS: Meloxicam 15 MG Tablet PO (10:13)
[2024-06-14] MEDS: amLODIPine 5 MG Tablet PO (10:13)
[2024-06-14] MEDS: Lisinopril 10 MG Tablet 30 MG PO (10:13)
--- NOTE | 2024-06-14 12:41 | TREXTCAR_ITS ---
Diet Diet Order/Speech Therapy: 06/12/24 13:49 Diet: Regular - General Type of Dietary Supplement:: Ensure Surgery Wound(s) MID BACK: Wound Type: Surgical Incision (Keep tegaderm and gauze clean and dry. After 5 days remove tegaderm and gauze and cover with a bandaid. Change bandaid daily there after. No bending, lifting, or twisting. ) Therapies Weight Bearing: Full weight bearing Physical Therapy: Eval and Treat Occupational Therapy: Eval and Treat Problem/Diagnosis (1) Status post laminectomy: Status: Acute Code(s): Z98.890 - Other specified postprocedural states Plan POD #1 PT/OT to attempt stairs with the patient. Discussed discharge location of home vs SNF and patient understands that based on the surgery and function, a SNF may not be possible. In the past he has had multiple falls on these stairs and feels that his knee gives out on him. Pain has been well managed. Waiting to hear back from case management associate on where to discharge. He will follow back up in 2 weeks in the clinic. Allergies/Procedures Done in Hospital Allergies sulfamethoxazole (From Bactrim) Allergy (Verified 06/12/24 09:08) Rash trimethoprim (From Bactrim) Allergy (Verified 06/12/24 09:08) Rash Type of Care/Length of Stay Estimated LOS: Convalescent Care Less Than 30 days Type of Care Needed: Skilled Rehab Potential: Good Prognosis: Good Additional Orders/Day of Discharge Day of Discharge: 06/14/24 Follow Up Care Please Follow Up With: Ishmael Schilling MD When: Follow up in clinic in 2 weeks Discharge Plan Admission Admit Date/Time: 06/12/24 13:48 Primary Reason for Your Visit: s/p laminectomy Attending Provider: Ishmael Schilling Primary Care Provider: Vane Artis NP Consulting Providers: Tamar Rousseau; Sandra Ramírez Instructions Patient Instructions: Laminectomy Dc Additional Instructions / Restrictions: Keep Tegaderm and gauze clean and dry. If Tegaderm is intact, okay to shower. After 5 days remove Tegaderm and gauze and cover with a Band-Aid. Replace Band- Aid daily thereafter. No bending lifting or twisting. Follow-up in clinic in 2 weeks. Discharge Orders/Prescriptions Prescriptions: New meloxicam 15 mg Tablet 15 mg PO DAILY Qty: 30 0RF methocarbamol 500 mg Tablet 750 mg PO TID PRN (Reason: pain/spasms ) Qty: 30 0RF sennosides-docusate sodium [Stimulant Laxative Plus] 8.6-50 mg Tablet 2 tab PO BID PRN (Reason: constipation) Qty: 30 0RF hydrocodone-acetaminophen 5-325 mg Tablet 1 tab PO Q6H 5 Days Qty: 20 0RF Continued levothyroxine 100 mcg tablet 100 mcg PO QDAY hydroxychloroquine 200 mg tablet 200 mg PO QDAY famotidine 20 mg tablet 20 mg PO BID lisinopril 30 mg tablet 30 mg PO QDAY amlodipine 5 mg tablet 5 mg PO DAILY ergocalciferol (vitamin D2) 1,250 mcg (50,000 unit) capsule 1,250 mcg PO ANDERSON Discontinued naproxen sodium [Aleve] 220 mg capsule 440 mg PO BID PRN (Reason: pain) Referrals / Follow Up: Vane Artis NP, MOLDER FOAM RUBBER-C [Primary Care Provider] - Disposition Disposition (needs filled in before D/C Order can be placed[facility]
--- NOTE | 2024-06-14 13:06 | PCM.PN.ORT ---
Subjective Subjective Postop day 2 laminectomy. Patient is doing well and has walked with therapy. Attempted steps however was only able to do 4 steps in a row. He has 22 steps to get into his apartment. Approved to [facility] for additional rehab. Objective Data Objective Data Vital Signs: Vital Signs Temp Pulse Resp BP Pulse Ox O2 Del Method O2 Flow Rate 97.6 F L 56 L 16 134/77 H 99 Room Air 2 06/14/24 07:23 06/14/24 07:23 06/14/24 07:23 06/14/24 07:23 06/14/24 07:23 06/14/24 07:23 06/12/24 16:16 Oxygen Flow Rate (L/min) 2 Oxygen Delivery Method Room Air Weight: 381 lb 15.379 oz Body Mass Index (BMI) 44.1 Intake & Output: Intake and Output for Last 24 Hours 06/12/24 06/13/24 06/14/24 23:59 23:59 23:59 Intake Total 1821 1488.25 / 1688.25 200 / 200 Balance 1821 1488.25 / 1688.25 200 / 200 Lab / Micro Data 06/13/24 06:38 06/13/24 06:38 Micro: Microbiology 06/07/24 10:52 Swab (Method) Nasal Screen MRSA/MSSA - Final Physical Exam Narrative Tegaderm and gauze are intact. No drainage noticed. Neurological exam of the lower extremities shows 5x5 power. Normal sensations across all dermatomes. Const alert, oriented x3 and no apparent distress Assessment & Plan Assessment/Plan (1) Status post laminectomy: PLAN: Plan Discharge to [facility] sent. Home meds include hydrocodone-acetaminophen, meloxicam, methocarbamol, senna. Pain has been well managed. No bending, lifting, or twisting. Follow up in clinic in 2 weeks.
--- NOTE | 2024-06-14 13:14 | CASEMGMT ---
Social Work- SW received notification that [facility] accepted and started precert. SW completed 7000, transport, and green sheet to be placed on chart. Pt updated that precert has been started. KRISH Milton
[2024-06-14 13:23] VITALS: BP 143/77; PULSE 58; RESP 16; TEMP 36.8; O2SAT 100
[2024-06-14 21:20] VITALS: BP 130/81; PULSE 58; RESP 16; TEMP 36.8; O2SAT 98
[2024-06-15 03:51] VITALS: BP 155/95; PULSE 71; RESP 16; TEMP 36.4; O2SAT 99
[2024-06-15] MEDS: Levothyroxine 100 MCG Tablet PO (06:48)
--- NOTE | 2024-06-15 08:12 | CASEMGMT ---
Social Work SW completed PAS/RR as pt's status now listed as observation. Further assessment not needed. SW will place a copy on chart and a copy to go w/pt to SNF once precert is attained. CHASE Lopez
[2024-06-15 09:00] VITALS: BP 160/90; PULSE 57; RESP 16; TEMP 36.9; O2SAT 98
[2024-06-15] MEDS: Ensure Surgery 237 ML LIQUID PO ×3 (09:11→18:35)
[2024-06-15] MEDS: Methocarbamol 500 MG Tablet 1000 MG PO ×4 (09:14→21:43)
[2024-06-15] MEDS: Lisinopril 10 MG Tablet 30 MG PO (09:15)
[2024-06-15] MEDS: Senna/Docusate Sodium 1 Tablet 2 TABLET PO ×2 (09:15→21:43)
[2024-06-15] MEDS: amLODIPine 5 MG Tablet PO (09:15)
[2024-06-15] MEDS: Hydroxychloroquine 200 MG Tablet PO (09:16)
[2024-06-15] MEDS: Meloxicam 15 MG Tablet PO (09:16)
[2024-06-15] MEDS: Famotidine 20 MG Tablet PO ×2 (09:16→21:43)
[2024-06-15 14:38] VITALS: BP 125/81; PULSE 60; RESP 18; TEMP 36.8; O2SAT 97
[2024-06-15 19:49] VITALS: BP 160/97; PULSE 67; RESP 18; TEMP 36.5; O2SAT 98
[2024-06-16 02:13] VITALS: BP 159/83; PULSE 66; RESP 18; TEMP 36.6; O2SAT 99
[2024-06-16 05:38] LABS: Hematocrit 40.4 % (40-54); Hemoglobin 13.5 g/dL (13.0-16.5); Mean Corp Hgb Conc 33.4 g/dL (32-36); Mean Corpuscular Hgb 29.5 pg (27.0-32.0); Mean Corpuscular Volume 88.4 fL (80-94); Mean Platelet Vol. 9.2 fl (6.2-12.0); Platelet Count 214 K/mm3 (150-450); RBC Distribution Width CV 11.9 % (11.6-14.6); RBC Distribution Width SD 38.2 fl (35.1-43.9); Red Blood Count 4.57 M/mm3 (4.6-6.2); White Blood Count 5.5 K/mm3 (4.4-11.0)
[2024-06-16 05:58] LABS: Anion Gap 3 (5-15); BUN 22 mg/dL (7-18); BUN/Creat Ratio 25.5 RATIO (10-20); Calcium,Total 9.1 mg/dL (8.5-10.1); Chloride 106 mmol/L (98-107); Creatinine, Serum 0.86 mg/dL (0.70-1.30); EST Glomerular Filtration Rate 99 mL/min (>60); Est Glom Filt Rate - Afr Amer 119 mL/min (>60); Estimated Creatinine Clearance 176.43 ml/min; Glucose 119 mg/dL (74-106); Potassium 4.3 mmol/L (3.5-5.1); Sodium Level 138 mmol/L (136-145)
[2024-06-16] MEDS: Levothyroxine 100 MCG Tablet PO (06:49)
[2024-06-16 09:28] VITALS: BP 143/83; PULSE 76; RESP 18; TEMP 36.6; O2SAT 100
[2024-06-16] MEDS: Methocarbamol 500 MG Tablet 1000 MG PO ×4 (09:40→23:01)
[2024-06-16] MEDS: Lisinopril 10 MG Tablet 30 MG PO (09:40)
[2024-06-16] MEDS: Famotidine 20 MG Tablet PO ×2 (09:40→23:02)
[2024-06-16] MEDS: Senna/Docusate Sodium 1 Tablet 2 TABLET PO ×2 (09:40→23:02)
[2024-06-16] MEDS: Meloxicam 15 MG Tablet PO (09:41)
[2024-06-16] MEDS: Hydroxychloroquine 200 MG Tablet PO (09:41)
[2024-06-16] MEDS: Ergocalciferol 1.25 MG (50, 000 UNIT) Capsule PO (09:41)
[2024-06-16] MEDS: amLODIPine 10 MG Tablet PO (09:43)
[2024-06-16] MEDS: Ensure Surgery 237 ML LIQUID PO ×3 (09:48→17:50)
--- NOTE | 2024-06-16 10:26 | PN.HOSP_ITS ---
Reason for Visit Reason for Visit: Thoracic laminectomy Subjective Subjective Patient continues to do well. Still waiting for approval to go to a skilled facility for ongoing rehab. Feels like he is doing a little bit better with movement. He does have a lot of steps to enter his home so that has been limiting his discharge to home setting. Objective Data Objective Data Vital Signs: Vital Signs Temp Pulse Resp BP Pulse Ox O2 Del Method O2 Flow Rate 97.9 F 76 18 143/83 H 100 Room Air 2 06/16/24 09:28 06/16/24 09:28 06/16/24 09:28 06/16/24 09:28 06/16/24 09:28 06/16/24 09:28 06/12/24 16:16 Oxygen Flow Rate (L/min) 2 Oxygen Delivery Method Room Air Weight: 173.255 kg Body Mass Index (BMI) 44.1 Intake & Output: Intake and Output for Last 24 Hours 06/14/24 06/15/24 06/16/24 23:59 23:59 23:59 Intake Total 600 / 600 1580 / 1580 200 / 200 Balance 600 / 600 1580 / 1580 200 / 200 Lab / Micro Data 06/16/24 05:23 06/16/24 05:23 Labs: Laboratory Results - last 24 hr 06/16/24 05:23: WBC 5.5, RBC 4.57 L, Hgb 13.5, Hct 40.4, MCV 88.4, MCH 29.5, MCHC 33.4, RDW Std Deviation 38.2, RDW Coeff of Barrett 11.9, Plt Count 214, MPV 9.2, Sodium 138, Potassium 4.3, Chloride 106, Carbon Dioxide 28.0, Anion Gap 3 L , BUN 22 H, Creatinine 0.86, Estim Creat Clear Calc 176.43, Est GFR (MDRD) Af Amer 119, Est GFR (MDRD) Non-Af 99, BUN/Creatinine Ratio 25.5 H, Glucose 119 H, Calcium 9.1 Micro: Microbiology 06/07/24 10:52 Swab (Method) Nasal Screen MRSA/MSSA - Final Physical Exam Const alert, oriented x3, no apparent distress and well nourished Constitutional Narrative: Morbidly obese, middle-aged, white male, lying in bed, appears comfortable, nontoxic HEENT head/scalp atraumatic Head and Scalp: normocephalic Neuro Neuro Narrative: I did evaluate him walking in the wall with therapy services he does fairly well with a wheeled walker however is a bit tentative and he ambulates gingerly at times Speech: speech normal Psych Psych Narrative: Pleasant, eye contact is good and interacts appropriately Assessment & Plan Assessment/Plan (1) Status post laminectomy: (2) Thoracic myelopathy: PLAN: Plan 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 -Postop day 4 -Overall doing well with no significant issues -Continue as needed pain medication per primary service -Continue bowel regimen as patient states he is having good bowel movements -Continue physical and Occupational Therapy -Current plan is for discharge to skilled facility once pre-CERT is obtained Hypertension -Continue lisinopril 30 mg daily -Continue amlodipine but increase to 10 mg from 5 mg as his blood pressure is consistently elevated -If for some reason he is unable to go to SNF will need prescription for amlodipine at discharge but I have already completed the med reconciliation to reflect the higher dose History of lupus -Continue hydroxychloroquine GERD -Continue home famotidine Hypothyroidism -Continue home levothyroxine Morbid obesity -BMI is 44.1 -Recommend weight loss -Complicates treatment, prognosis, outcomes DVT prophylaxis -Per primary service Charges/Coding Visit Charges Inpatient E&M: 26990 Subs Hosp L1
[2024-06-16 14:00] VITALS: BP 140/83; PULSE 68; RESP 18; TEMP 36.6; O2SAT 98
[2024-06-16 22:59] VITALS: BP 142/81; PULSE 65; RESP 18; TEMP 36.5; O2SAT 98
[2024-06-17] MEDS: Levothyroxine 100 MCG Tablet PO (05:26)
[2024-06-17 05:31] VITALS: BP 134/78; PULSE 60; RESP 18; TEMP 36.4; O2SAT 97
[2024-06-17 08:06] VITALS: BP 140/93; PULSE 66; RESP 18; TEMP 36.1; O2SAT 98
[2024-06-17] MEDS: Ensure Surgery 237 ML LIQUID PO ×2 (08:12→12:03)
[2024-06-17] MEDS: Meloxicam 15 MG Tablet PO (08:13)
[2024-06-17] MEDS: Famotidine 20 MG Tablet PO ×2 (08:13→21:54)
[2024-06-17] MEDS: Hydroxychloroquine 200 MG Tablet PO (08:13)
[2024-06-17] MEDS: Methocarbamol 500 MG Tablet 1000 MG PO ×4 (08:13→21:54)
[2024-06-17] MEDS: Senna/Docusate Sodium 1 Tablet 2 TABLET PO ×2 (08:14→21:54)
[2024-06-17] MEDS: Lisinopril 10 MG Tablet 30 MG PO (08:14)
[2024-06-17] MEDS: amLODIPine 10 MG Tablet PO (08:19)
--- NOTE | 2024-06-17 09:58 | CASEMGMT ---
Discharge Planning Updates sent to [facility] with note checking on status of precert. Awaiting response. Trudy Barr DC Planning Asst.
[2024-06-17 14:02] VITALS: BP 131/75; PULSE 73; RESP 18; TEMP 36.4; O2SAT 99
--- NOTE | 2024-06-17 14:21 | PN_ITS ---
Subjective Subjective Patient seen and examined. He had no active complaints and had an uneventful night. Review of systems is otherwise negative. He is awaiting placement. Objective Data Objective Data Vital Signs: Vital Signs Temp Pulse Resp BP Pulse Ox O2 Del Method O2 Flow Rate 97.5 F L 73 18 131/75 H 99 Room Air 2 06/17/24 14:02 06/17/24 14:02 06/17/24 14:02 06/17/24 14:02 06/17/24 14:02 06/17/24 14:02 06/12/24 16:16 Oxygen Flow Rate (L/min) 2 Oxygen Delivery Method Room Air Weight: 381 lb 15.379 oz Body Mass Index (BMI) 44.1 Intake & Output: Intake and Output for Last 24 Hours 06/15/24 06/16/24 06/17/24 23:59 23:59 23:59 Intake Total 1580 / 1580 1674 / 1674 1999 Balance 1580 / 1580 1674 / 1674 1999 Lab / Micro Data 06/16/24 05:23 06/16/24 05:23 Micro: Microbiology 06/07/24 10:52 Swab (Method) Nasal Screen MRSA/MSSA - Final Physical Exam Narrative obese Const alert, oriented x3, no apparent distress and well nourished General Appearance: cooperative and well developed HEENT normocephalic, head/scalp atraumatic and moist oral mucous membranes Neck no lymphadenopathy and supple Lymph Lymphatic: no lymphadenopathy noted Resp normal respiratory effort, normal air movement and clear to auscultation bilaterally Cardio regular rate, regular rhythm, S1 normal heart sound, S2 normal heart sound and no murmurs GI normal to inspection, nondistended, normoactive bowel sounds, soft to palpation, non-tender and non-distended Extremity normal capillary refill, no clubbing, cyanosis or edema and no calf tenderness Skin Skin Narrative: intact dressing over surgical site on mid back Neuro CN's II-XII intact bilaterally, no focal motor deficits, no sensory deficits noted and deep tendon reflexes 2+ bilaterally Motor Exam: strength 5/5 throughout and general weakness Psych thought process normal and cooperative Appearance: appropriate Assessment & Plan Assessment/Plan (1) Status post laminectomy: (2) Back pain: PLAN: Plan #Spinal stenosis with cord compression and myelopathy * s/p surgery * pain management as per primary service * PT/OT on board. fall precautions * incentive spirometry * #Hypertension * On lisinopril 30 mg daily and amlodipine 10 mg daily. IV hydralazine as needed #History of lupus: On hydroxychloroquine #GERD: on PPI #Hypothyroidism: on synthroid #Morbid obesity: BMi is 44.1. Complicates acute care, expected recovery and prognosis DVT prophylaxis: as per primary service; on SCDs Disposition: awaiting placement. Charges/Coding Visit Charges Inpatient E&M: 15149 Subs Hosp L2
--- NOTE | 2024-06-17 14:34 | CASEMGMT ---
Social Work- SW met with pt to complete HCPOA papers per pt request. Pt named Kavitha, friend, as primary agent. SW placed a copy on chart and provided pt with original and agent with copy. KRISH Milton
[2024-06-17 22:20] VITALS: BP 135/88; PULSE 65; RESP 18; TEMP 36.8; O2SAT 98
[2024-06-18 06:00] VITALS: BP 139/87; PULSE 62; RESP 18; TEMP 36.4; O2SAT 98
[2024-06-18] MEDS: Levothyroxine 100 MCG Tablet PO (06:24)
[2024-06-18] MEDS: Hydroxychloroquine 200 MG Tablet PO (08:09)
[2024-06-18] MEDS: Famotidine 20 MG Tablet PO (08:10)
[2024-06-18] MEDS: Meloxicam 15 MG Tablet PO (08:10)
[2024-06-18] MEDS: amLODIPine 10 MG Tablet PO (08:10)
[2024-06-18] MEDS: Lisinopril 10 MG Tablet 30 MG PO (08:11)
[2024-06-18] MEDS: Methocarbamol 500 MG Tablet 1000 MG PO (08:11)
[2024-06-18] MEDS: Senna/Docusate Sodium 1 Tablet 2 TABLET PO (08:11)
[2024-06-18] MEDS: Ensure Surgery 237 ML LIQUID PO ×2 (08:15→11:33)
[2024-06-18 08:31] VITALS: BP 147/91; PULSE 66; RESP 16; TEMP 36.9; O2SAT 94
--- NOTE | 2024-06-18 11:29 | PN_ITS ---
Subjective Subjective Patient seen and examined. He had no complaints. Review of systems otherwise negative. He is still awaiting placement. He has remained hemodynamically stable. Objective Data Objective Data Vital Signs: Vital Signs Temp Pulse Resp BP Pulse Ox O2 Del Method O2 Flow Rate 98.4 F 66 16 147/91 H 94 Room Air 2 06/18/24 08:31 06/18/24 08:31 06/18/24 08:31 06/18/24 08:31 06/18/24 08:31 06/18/24 08:31 06/12/24 16:16 Oxygen Flow Rate (L/min) 2 Oxygen Delivery Method Room Air Weight: 381 lb 15.379 oz Body Mass Index (BMI) 44.1 Intake & Output: Intake and Output for Last 24 Hours 06/16/24 06/17/24 06/18/24 23:59 23:59 23:59 Intake Total 1674 / 1674 4000 / 4000 1000 / 1000 Balance 1674 / 1674 4000 / 4000 1000 / 1000 Lab / Micro Data 06/16/24 05:23 06/16/24 05:23 Micro: Microbiology 06/07/24 10:52 Swab (Method) Nasal Screen MRSA/MSSA - Final Physical Exam Narrative obese Const alert, oriented x3, no apparent distress and well nourished General Appearance: cooperative and well developed HEENT normocephalic, head/scalp atraumatic and moist oral mucous membranes Neck no lymphadenopathy and supple Lymph Lymphatic: no lymphadenopathy noted Resp normal respiratory effort, normal air movement and clear to auscultation bilaterally Cardio regular rate, regular rhythm, S1 normal heart sound, S2 normal heart sound and no murmurs GI normal to inspection, nondistended, normoactive bowel sounds, soft to palpation, non-tender and non-distended Extremity normal capillary refill, no clubbing, cyanosis or edema and no calf tenderness General Extremity: no tenderness to palpation of joints or extremities Skin Skin Narrative: intact dressing over surgical site on mid back Neuro CN's II-XII intact bilaterally, no focal motor deficits, no sensory deficits noted and deep tendon reflexes 2+ bilaterally Speech: speech normal Motor Exam: strength 5/5 throughout and general weakness Psych thought process normal and cooperative Appearance: appropriate Assessment & Plan Assessment/Plan (1) Status post laminectomy: (2) Back pain: PLAN: Plan #Spinal stenosis with cord compression and myelopathy * s/p surgery * pain management as per primary service * PT/OT on board. fall precautions * incentive spirometry * #Hypertension * On lisinopril 30 mg daily and amlodipine 10 mg daily. IV hydralazine as needed #History of lupus: On hydroxychloroquine #GERD: on PPI #Hypothyroidism: on synthroid #Morbid obesity: BMi is 44.1. Complicates acute care, expected recovery and prognosis DVT prophylaxis: as per primary service; on SCDs Disposition: awaiting placement. Charges/Coding Visit Charges Inpatient E&M: 70901 Subs Hosp L2
--- NOTE | 2024-06-18 12:15 | PCM.PN.ORT ---
Subjective Subjective Seem with Dr. Schilling. POD #6, still awaiting insurance approval to [facility]. PT/OT: he has walked and has done 4 steps in a row. Says that he only has been walking 3 times per day. Objective Data Objective Data Vital Signs: Vital Signs Temp Pulse Resp BP Pulse Ox O2 Del Method O2 Flow Rate 98.4 F 66 16 147/91 H 94 Room Air 2 06/18/24 08:31 06/18/24 08:31 06/18/24 08:31 06/18/24 08:31 06/18/24 08:31 06/18/24 08:31 06/12/24 16:16 Oxygen Flow Rate (L/min) 2 Oxygen Delivery Method Room Air Weight: 381 lb 15.379 oz Body Mass Index (BMI) 44.1 Intake & Output: Intake and Output for Last 24 Hours 06/16/24 06/17/24 06/18/24 23:59 23:59 23:59 Intake Total 1674 / 1674 4000 / 4000 1000 / 1000 Balance 1674 / 1674 4000 / 4000 1000 / 1000 Lab / Micro Data 06/16/24 05:23 06/16/24 05:23 Micro: Microbiology 06/07/24 10:52 Swab (Method) Nasal Screen MRSA/MSSA - Final Physical Exam Narrative Neurological exam of the lower extremities shows 5x5 power. Normal sensations across all dermatomes. Gauze and Tegaderm was removed. New gauze and tape was applied over incision. Const alert, oriented x3 and no apparent distress Assessment & Plan Assessment/Plan (1) Status post laminectomy: PLAN: Plan POD #6 PT/OT: continue to walk and work on stairs. Repeat 4 step stairs multiple times to stimulate home environment. Talked to cyanide case hardener and awaiting insurance approval. Encouraged patient to call his insurance himself and speak to them. Incision: okay to change gauze and tape daily. No bending, lifting, or twisting. Follow up in office next week.
--- NOTE | 2024-06-18 12:41 | CASEMGMT ---
Social Work Precert has been obtained.? Physician updated and pt is ready for discharge today.? 7000 convalescent form completed in [facility] SW met with pt and they are agreeable to discharge plan as stated above.? DCA and bedside nurse notified of discharge. Disposition:[facility], skilled level of care under convalescent stay. KRISH Milton
--- NOTE | 2024-06-18 12:54 | CASEMGMT ---
Discharge Planning Discharge orders, signed med list, and transport time sent to [facility] via [facility]. Physicians will transport patient by cot at 3:30p. Nursing, SW, and patient updated. Pt stated he would updated contact, Mary. Trudy Barr DC Planning Asst.
[2024-06-18 14:00] VITALS: BP 144/77; PULSE 74; RESP 16; TEMP 36.8; O2SAT 95
--- NOTE | 2024-06-18 14:59 | NURSING ---
[facility] called to [facility]
--- NOTE | 2024-07-10 12:19 | DS.PCM_ITS ---
Discharge Summary Date of Admission: 06/12/24 Date of Discharge: 06/18/24 Summary: Patient admitted on 06/12 for T10-[address] Schilling. He was seen and evaluated by PT and OT who recommended skilled rehab after discharge due to the patient needing go up 22 steps at home and not having the strength. He stayed in house until the due to the weekend and no transfers and waiting for insurance precert. He followed in the clinic 2 weeks later. Meaningful Use Info Meaningful Use Meaningful Use Diagnoses (Choose all that apply): None applicable Ischemic Stroke Statin Dosing Therapy Reference: STATIN DOSE THERAPY REFERENCE: * Patients > 75 years receive moderate or high dose statin therapy. * Patients 75 years or YOUNGER should receive HIGH intensity statin dose unless contraindicated. You will be required to document reason for non-treatment if statin daily dose does not meet guidelines. HIGH DOSE STATIN THERAPY DAILY Atorvastatin > than or = to 40 mg Rosuvastatin > than or = to 20 mg Amlodipine + Atorvastatin > than or = to 2.5/40 mg Ezetimibe + Simvastatin 10/80 mg Simvastatin 80mg Discharge Plan Admission Admit Date/Time: 06/12/24 13:48 Primary Reason for Your Visit: s/p laminectomy Attending Provider: Ishmael Schilling Primary Care Provider: Vane Artis NP Consulting Providers: Tamar Rousseau; Alize Garcia Instructions Patient Instructions: Laminectomy Dc Additional Instructions / Restrictions: Keep Tegaderm and gauze clean and dry. If Tegaderm is intact, okay to shower. After 5 days remove Tegaderm and gauze and cover with a Band-Aid. Replace Band- Aid daily thereafter. No bending lifting or twisting. Follow-up in clinic in 2 weeks. Discharge Orders/Prescriptions Prescriptions: New amlodipine 10 mg Tablet 10 mg PO DAILY Qty: 0 0RF Continued levothyroxine 100 mcg tablet 100 mcg PO QDAY hydroxychloroquine 200 mg tablet 200 mg PO QDAY famotidine 20 mg tablet 20 mg PO BID lisinopril 30 mg tablet 30 mg PO QDAY ergocalciferol (vitamin D2) 1,250 mcg (50,000 unit) capsule 1,250 mcg PO ANDERSON Discontinued amlodipine 5 mg tablet 5 mg PO DAILY naproxen sodium [Aleve] 220 mg capsule 440 mg PO BID PRN (Reason: pain) Referrals / Follow Up: Vane Artis GLYCERIN SUPERVISOR, GLYCERIN SUPERVISOR-C [Primary Care Provider] - Disposition Disposition (needs filled in before D/C Order can be placed): [facility]
== END 2024-06-18 15:35 | disposition skilled nursing facility (03) ==
LOC: SDC 15:14 → MS3 06-13 07:00
PROVIDERS: Anesthesiology; Internal Medicine; Student in an Organized Health Care Education/Training Program; Admitting Provider Orthopaedic Surgery Orthopaedic Surgery of the Spine; PCP Nurse Practitioner Family; Referring Provider Orthopaedic Surgery Orthopaedic Surgery of the Spine; Visit Provider Orthopaedic Surgery Orthopaedic Surgery of the Spine
PROC: (CPT 63030; principal; 2024-06-12 11:00)
DX: M48.04 Spinal stenosis, thoracic region (principal); M32.9 Systemic lupus erythematosus, unspecified; E66.01 Morbid (severe) obesity due to excess calories; Z68.41 Body mass index [BMI] 40.0-44.9, adult; M48.062 Spinal stenosis, lumbar region with neurogenic claudication; M51.04 Intervertebral disc disorders with myelopathy, thoracic region; I10 Essential (primary) hypertension; Z79.899 Other long term (current) drug therapy; Z79.890 Hormone replacement therapy; E03.9 Hypothyroidism, unspecified; K21.9 Gastro-esophageal reflux disease without esophagitis
CPT/HCPCS: 63046; 00620; 36415; 72070; 76000; 80048; 82962; 83735; 85027; 86703; 86706; 86708; 86803; 86850; 86900; 86901; 87077; 87081; 94668; 96365; 96375; 96376; 97110; 97116; 97162; 97166; 97530; 97535; 99221; J7120; A4216; G0378; J2405; J3475